=== PATIENT | male | born 1985 | race Caucasian/White ===

== ENCOUNTER 2016-05-31 15:39 | Emergency (ER) | payer OTHER ==
[~2016-05-31] VITALS: Ht 177.8 cm; Wt 64.0 kg
[~2016-05-31 15:39] MED LIST: NAPR550 PO; Z.0.NO CURRENT MEDS
[2016-05-31 15:45] VITALS: BP 119/84; PULSE 78; RESP 16; TEMP 98.6; O2SAT 96
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
[2016-05-31] MEDS ORDERED: CYCL1TAB29 PO (16:35)
[2016-05-31] MEDS ORDERED: IBUP800T23 PO (16:35)
[2016-05-31] MEDS ORDERED: KETOROLAC TROMETHAMINE 60 MG/2 ML (IM) VIAL IM ONE (16:45)
== END 2016-05-31 17:00 | disposition home or self-care (01) ==
LOC: PHEFT 15:39
DX: M54.5 Low back pain (principal); M62.830 Muscle spasm of back; M25.551 Pain in right hip; V49.88XA Car occupant (driver) (passenger) injured in other specified transport accidents, initial encounter
CPT/HCPCS: 96372; 99283; J1885